=== PATIENT | male | born 1950 | race Caucasian/White ===

== ENCOUNTER 2017-01-18 02:16 | Emergency (ER) | payer BC, MEDICARE ==
[2017-01-18] MEDS ORDERED: MORPHINE SULFATE 10 MG/ML INJ IV ONE (03:18)
[2017-01-18] MEDS ORDERED: ONDANSETRON HCL INJ/PF 4 MG/2 ML SDV IV ONE (03:18)
[2017-01-18 03:49] LABS: ABSOLUTE BASOPHILS # (AUTO) 0.2 10^3/uL (0.0-0.2); ABSOLUTE EOSINOPHILS # (AUTO) 0.4 10^3/uL (0.0-0.6); ABSOLUTE LYMPHOCYTES (AUTO) 1.3 10^3/uL (0.5-4.7); ABSOLUTE MONOCYTES (AUTO) 0.7 10^3/uL (0.1-1.4); ABSOLUTE NEUT (AUTO) 9.1 10^3/uL (1.7-8.2); BASOPHILS % (AUTO) 1.4 % (0-2); EOSINOPHILS % (AUTO) 3.7 % (0-6); HEMOGLOBIN 13.5 g/dL (13.5-17.0); HGB HCT DIFFERENCE -1.5; LYMPHOCYTES % (AUTO) 11.1 % (13-45); MEAN CORPUSCULAR HEMOGLOBIN 28.7 pg (27.0-33.4); MEAN CORPUSCULAR HGB CONC 32.2 g/dL (32.0-36.0); MEAN CORPUSCULAR VOLUME 89 fl (80-97); MONOCYTES % (AUTO) 5.7 % (3-13); RED BLOOD COUNT 4.71 10^6/uL (4.35-5.55); RED CELL DISTRIBUTION WIDTH 16.3 % (11.5-14.0); SEGMENTED NEUTROPHILS % (AUTO) 78.1 % (42-78); WHITE BLOOD COUNT 11.7 10^3/uL (4.0-10.5)
[2017-01-18 04:01] LABS: ANION GAP 11 (5-19); BLOOD UREA NITROGEN 23 mg/dL (7-20); CALCIUM 11.2 mg/dL (8.4-10.2); CARBON DIOXIDE 24 mmol/L (22-30); CHLORIDE 107 mmol/L (98-107); CREATININE RESULT 1.54 mg/dL (0.52-1.25); GLUCOSE 115 mg/dL (75-110); POTASSIUM 4.7 mmol/L (3.6-5.0); SODIUM 142.2 mmol/L (137-145)
[2017-01-18] MEDS ORDERED: HYDROMORPHONE HCL INJ/PF 2 MG/ML AMPULE IV ONE ×2 (04:24→06:09)
--- NOTE | 2017-01-18 04:34 | RADIOLOGY REPORT (SQ) ---
EXAM DESCRIPTION: CT LTD RENAL STONE PROTOCOL ON COMPLETED DATE/TIME: 01/18/2017 4:14 am REASON FOR STUDY: left flank pain, nausea COMPARISON: None. TECHNIQUE: CT scan of the abdomen and pelvis performed without intravenous or oral contrast. Images reviewed with lung, soft tissue, and bone windows. Reconstructed coronal and sagittal MPR images revi ewed. All images stored on PACS. All CT scanners at this facility use dose modulation, iterative reconstruction, and/or weight based d osing when appropriate to reduce radiation dose to as low as reasonably achievable (ALARA). [facility]: Dose Right [facility]: CareDose [facility]: Dose Right [facility]: Teradose 4D [facility]: Smart Rootless RADIATION DOSE: Up-to-date CT equipment and radiation dose reduction techniques were employed. CTDIv ol: 13.9 mGy. DLP: 682 mGy-cm.mGy. LIMITATIONS: None. FINDINGS: LOWER CHEST: No significant findings. No nodules or infiltrates. Moderate emphysematous h yperinflation. Small atelectasis or scar of the lung bases. NON-CONTRASTED LIVER, SPLEEN, ADRENALS: Evaluation limited by lack of IV contrast. No identified sign ificant masses. PANCREAS: No masses. No peripancreatic inflammatory changes. GALLBLADDER: The RIGHT KIDNEY AND URETER: No suspicious masses. Assessment limited by lack of IV contrast. 0.2 cm ne phrolithiasis. No hydronephrosis or hydroureter. LEFT KIDNEY AND URETER: 0.8 x 0.7 x 0.9 cm left ureteral pelvic junctional stone and moderate perinep hric fat stranding consistent with recent vesicoureteral reflux. Minimal prominence of the left mónica l collecting system only. Additional left renal stones measure up to 1.4 cm each. AORTA AND RETROPERITONEUM: No aneurysm. No retroperitoneal masses or adenopathy. BOWEL AND PERITONEAL CAVITY: No obvious masses or inflammatory changes. No free fluid. Moderate colo delvin diverticulosis. APPENDIX: Normal. Hyperdense debris and/or appendicoliths. PELVIS, BLADDER, AND ABDOMINAL WALL:No abnormal masses. No free fluid. Bladder normal. Small right i nguinal fat only hernia. BONES: No significant findings. OTHER: No other significant finding. IMPRESSION: 0.9 cm left UPJ stone with low-moderate grade obstruction. Bilateral nephrolithiasis. Cholelithiasis. TECHNICAL DOCUMENTATION: JOB ID: [id number] Quality ID # [id number]: Final reports with documentation of one or more dose reduction techniques (e.g., Au tomated exposure control, adjustment of the mA and/or kV according to patient size, use of iterative reconstruction technique) 2010 [employer]- All Rights Reserved
[2017-01-18 04:57] LABS: APPEARANCE,URINE CLOUDY; BILIRUBIN,URINE NEGATIVE (NEGATIVE); GLUCOSE, URINE NEGATIVE (NEGATIVE); KETONES,URINE NEGATIVE (NEGATIVE); LEUKOCYTE ESTERASE,URINE LARGE (NEGATIVE); NITRITE,URINE POSITIVE (NEGATIVE); PROTEIN,URINE 100 mg/dL (NEGATIVE); URINE SPECIFIC GRAVITY 1.017; UROBILINOGEN,URINE NEGATIVE mg/dL (<2.0)
[2017-01-18] MEDS ORDERED: CEFTRIAXONE 1 GM/D5W RTU 50 ML IV ONE (05:06)
--- NOTE | 2017-01-18 05:09 | ER Document Report ---
ED GI/ - General Chief Complaint: Possible Kidney Stone Stated Complaint: FLANK PAIN Time Seen by Provider: 01/18/17 03:11 Notes: Patient is a 66 year old male that comes to the ED for chief complaint of sudden onset left flank pain extending towards his left abdomen. He reports nausea, denies vomiting. He denies fever. PMH kidney stones, hypertension, hyperlipidemia. He states he got a Urology consult in October and they told him his stones were large. TRAVEL OUTSIDE OF THE [place] IN LAST 30 DAYS: No - Related Data Allergies/Adverse Reactions: chloramphenicol [From Chloromycetin] Allergy (Verified 01/18/17 02:37) erythromycin base Allergy (Verified 01/18/17 02:37) Sulfa (Sulfonamide Antibiotics) Allergy (Verified 01/18/17 02:37) Past Medical History - General Information source: Patient - Social History Smoking Status: Never Smoker Lives with: Family Family History: Reviewed & Not Pertinent Patient has suicidal ideation: No Patient has homicidal ideation: No - Past Medical History Cardiac Medical History: Reports: Hx Hypercholesterolemia, Hx Hypertension Renal/ Medical History: Reports: Hx Kidney Stones. Denies: Hx Peritoneal Dialysis - Immunizations Hx Diphtheria, Pertussis, Tetanus Vaccination: Yes Review of Systems - Review of Systems Constitutional: No symptoms reported EENT: No symptoms reported Cardiovascular: No symptoms reported Respiratory: No symptoms reported Gastrointestinal: See HPI Genitourinary: See HPI Male Genitourinary: No symptoms reported Musculoskeletal: No symptoms reported Skin: No symptoms reported Hematologic/Lymphatic: No symptoms reported Neurological/Psychological: No symptoms reported Physical Exam - Vital signs Vitals: Temp Pulse Resp BP Pulse Ox 97.8 F 57 L 18 193/98 H 100 01/18/17 02:33 01/18/17 02:33 01/18/17 02:33 01/18/17 02:33 01/18/17 02:33 Interpretation: Normal - General General appearance: Anxious In distress: Moderate - patient has difficulty holding still, is in obvious pain - HEENT Head: Normocephalic, Atraumatic Eyes: Normal Pupils: PERRL - Respiratory Respiratory status: No respiratory distress Chest status: Nontender Breath sounds: Normal. No: Decreased air movement Chest palpation: Normal - Cardiovascular Rhythm: Regular. No: Tachycardia Heart sounds: Normal auscultation, S1 appreciated, S2 appreciated Murmur: No - Abdominal Inspection: Normal Distension: No distension Bowel sounds: Normal Tenderness: Tender - generalized left mid to lower abominal tenderness without significant guarding - Back Back: Tender - left CVA tenderness - Extremities General upper extremity: Normal inspection, Nontender, Normal color, Normal ROM , Normal temperature General lower extremity: Normal inspection, Nontender, Normal color, Normal ROM , Normal temperature, Normal weight bearing. No: Evi's sign - Neurological Neuro grossly intact: Yes Cognition: Normal Orientation: AAOx4 [place] Coma Scale Eye Opening: Spontaneous [place] Coma Scale Verbal: Oriented [place] Coma Scale Motor: Obeys Commands [place] Coma Scale Total: 15 Speech: Normal Motor strength normal: LUE, RUE, LLE, RLE Sensory: Normal - Psychological Associated symptoms: Anxious - Skin Skin Temperature: Warm Skin Moisture: Dry Skin Color: Normal Course - Re-evaluation Re-evalutation: CT showing left ureterolithiasis with a very large stone at 9.8 mm, mild to moderate obstruction, also shows very large kidney stones retained in the left kidney as well. CBC shows mild leukocytosis with no bandemia, chemistry shows kidney functioning of creatinine at 1.54, no comparative studies. Patient unsure of his trend or baseline. Urinalysis shows nitrites, white blood cells, 3+ bacteria. Patient does not have a fever., Patient does have some hypertension, probably related to pain, no hypotension or tachycardia. Patient becomes more comfortable after pain medication, however his pain cannot be fully treated even after morphine, Dilaudid, he still has some discomfort and appears somewhat uncomfortable. No vomiting. 01/18/17 Calling [facility] for potential transfer, pending call back. Spoke with Dr. Stuart, urology, Discussed workup, symptoms, history. He recommended that patient be discharged home on pain medication with instructions to follow-up with their outpatient office today. Discussed with patient, patient is having pain again, patient states he is not comfortable with this, discussed with Dr. Orosco. Will attempt to transfer to [facility] where patient's request is to be transferred, he sees Dr. Pool who practices there. Spoke with Dr. Banuelos, talent acquisition coordinator for [facility], he recommended a consult with patient's personal neurologist. 01/18/17 06:[address] pool, he states that he recommends admission to the hospital, he states that he will call the hospital to arrange for patient to be admitted and if patient can reach the hospital by personal vehicle being transported by a friend (after patient is treated with antibiotics and pain medication), but this would be the most effective way of getting patient admitted to the hospital. I discussed this with patient and his son-in-law, they state agreement with the plan. Discussed with Dr. Orosco. 01/18/17 07:04 Spoke with Son in law, he is having another relative take him to the hospital for admission at [facility]. - Vital Signs Vital signs: Temp Pulse Resp BP Pulse Ox 97.8 F 57 L 18 193/98 H 100 01/18/17 02:33 01/18/17 02:33 01/18/17 02:33 01/18/17 02:33 01/18/17 02:33 - Laboratory Result Diagrams: 01/18/17 03:39 01/18/17 03:39 Laboratory results interpreted by me: 01/18/17 01/18/17 01/18/17 03:39 03:39 04:22 WBC 11.7 H RDW 16.3 H Seg Neutrophils % 78.1 H Lymphocytes % 11.1 L Absolute Neutrophils 9.1 H BUN 23 H Creatinine 1.54 H Est GFR ( Amer) 55 L Est GFR (Non-Af Amer) 46 L Glucose 115 H Calcium 11.2 H Urine Protein 100 H Urine Nitrite POSITIVE H Ur Leukocyte Esterase LARGE H Urine Ascorbic Acid 40 H Discharge - Discharge Clinical Impression: Ureterolithiasis, Flank pain Abdominal pain Qualifiers: Abdominal location: lower abdomen, unspecified Qualified Code(s): R10.30 - Lower abdominal pain, unspecified Urinary tract infection Qualifiers: Urinary tract infection type: site unspecified Hematuria presence: without hematuria Qualified Code(s): N39.0 - Urinary tract infection, site not specified Condition: Stable Disposition: [facility] Referrals: ANTONIO CHUNG MD [Primary Care Provider] - Follow up as needed
[2017-01-18] MEDS ORDERED: FENTANYL CITRATE INJ/PF 100 MCG/2 ML AMPUL ONE (06:04)
[2017-01-18] MEDS ORDERED: KETOROLAC TROMETHAMINE INJ/PF 30 MG/1 ML SDV IV ONE ×3 (06:09→07:32)
[2017-01-18 08:56] VITALS: BP 116/77
== END 2017-01-18 08:56 | disposition short-term general hospital (02) ==
LOC: ER 02:16
DX: N20.2 Calculus of kidney with calculus of ureter (principal); N39.0 Urinary tract infection, site not specified; R50.9 Fever, unspecified; R11.0 Nausea; I10 Essential (primary) hypertension; D72.829 Elevated white blood cell count, unspecified; F41.9 Anxiety disorder, unspecified; Z88.1 Allergy status to other antibiotic agents; Z88.2 Allergy status to sulfonamides
CPT/HCPCS: 96376; 99285; 96375; 96365; 36415; 87040; 87086; 85025; 87077; 87088; 80048; 81001; 87186; 76380; J1885; J2270; J1170; J2405; J0696